=== PATIENT | female | born 1950 | race Caucasian/White ===

== ENCOUNTER 2018-04-26 16:13 | Emergency (ER) | payer MEDICARE, OTHER ==
[2018-04-26] MEDS ORDERED: Ondansetron 8 MG Tab.DIS PO ONE (17:12)
[2018-04-26] MEDS ORDERED: HYDROmorphone 2 MG/ML SDV IVPUSH ONE (17:12)
[2018-04-26] MEDS ORDERED: HYDROmorphone 2 MG/ML SDV IM ONE (17:38)
--- NOTE | 2018-04-29 11:16 | ER ---
DATE SEEN: 04/26/2018 TIME SEEN: The patient was seen at 1640 hours. HISTORY OF PRESENT ILLNESS: This pleasant 67-year-old woman with previous spinal surgery for spinal stenosis in 2001 and 2005 comes in with a new onset of acute back pain. This pain has chronically been radiating to her feet, but is worse in the last 3 days. 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 She cannot tolerate standing like this. The pain is increased when she bends, when she goes to the bathroom, strains, coughs. She has some mild dysesthesia, the left greater than right lateral thigh that radiates to her anterior tib-fib region and to her anterior medial gastroc region L4 distribution, and she denies recent fall or unusual injury. She describes the pain as 7/10 in intensity, constant, shooting, and sharp. She had an epidural in November of 2017 which helped her muscles, but did not change much, lasted for a month, and then the pain returned. PAST MEDICAL HISTORY: Significant for tubal ligation, hysterectomy, depression, arrhythmia, ablation (AFib). She has impaired vision, dyslipidemia, hypertension, diabetes, mildly overweight, and chronic low back pain. REVIEW OF SYSTEMS: Otherwise negative, but she notes a slight decrease in sensation in the perineum and down back her legs (S4, S3 distribution). ALLERGIES: Morphine, nitrofurantoin, nitroglycerin, penicillin, and Compazine. PHYSICAL EXAMINATION: VITAL SIGNS: Blood pressure 117/65, heart rate 66, respirations 15, oxygen saturation 98%. Temperature 36.4 degrees centigrade, 74.8 kilos. GENERAL: The patient appears to be in mild distress, has a smile, and is slightly overweight. Pleasant, well dressed and appropriate, and articulate. HEENT: PERRLA intact. Pharynx without abnormality. LUNGS: Clear without rales, rhonchi, or wheezes. ABDOMEN: Soft, no guarding, no abdominal discomfort. BACK: Spinous process nontender to the L2 level. Beyond this there is mild tenderness and L4/5 has the most tenderness. No sacroiliac joint pain with palpation. No cysts noted on the sacroiliac joints. Deep tendon reflexes absent in knee jerks and ankle jerks. Mild hypoesthesia of left medial gastroc and also left lateral thigh. Straight leg raise at 80 degrees causes pain. No joint line pain at the ankle and knee. ASSESSMENT: 1. Low back pain with acute exacerbation. 2. Documented surgical treatment for spinal stenosis with scar from T11 through L5-S1. PLAN: Treat her with a shot of Dilaudid 1 mg IM plus Zofran 8 mg orally. No narcotics to go home with. The patient has prescription for Robaxin 750 mg 60 tablets one q.i.d. Use Tylenol 1000 mg, ibuprofen 600 mg together for pain. Follow up with doctor in a week, earlier if worse. /[id number] DARIAN/RICHARDL
== END 2018-04-26 17:53 | disposition home or self-care (01) ==
LOC: FB.ED 16:13
DX: M54.5 Low back pain (principal); Z88.5 Allergy status to narcotic agent; Z88.0 Allergy status to penicillin; Z88.8 Allergy status to other drugs, medicaments and biological substances
CPT/HCPCS: 96372; 99283; A9270; J1170

== ENCOUNTER 2018-11-10 21:49 | Emergency (ER) | payer MEDICARE ==
[2018-11-10] MEDS ORDERED: Colchicine 0.6 MG Tab PO ONE (22:12)
[2018-11-10] MEDS ORDERED: Ketorolac 30 MG/ML SDV IM STA (23:09)
[2018-11-10] MEDS ORDERED: Potassium Chloride 20 MEQ Tab.ER PO ONE (23:10)
--- NOTE | 2018-11-10 23:13 | EDM.PDOC ---
ED HPI GENERAL MEDICAL PROBLEM - General Chief Complaint: Lower Extremity Injury/Pain Stated Complaint: L LEG PAIN Time Seen by Provider: 11/10/18 21:49 Source of Information: Reports: Patient History Limitations: Reports: No Limitations - History of Present Illness INITIAL COMMENTS - FREE TEXT/NARRATIVE: 68 y.o.w.f with a h/o CAD s/p CABG, came to the ed with pain at her left lower/ distal tibia with extension and flexion of her left ankle. No Traum. Pt took tylenol without improvement. No h/o DVT and the Pt is on blood thinner for her CAD. No N/V/D or any other acute medical issues. BP 146/58 RR 18 Pulse ox 96% on RA Pulse 86 Temp 36.7 Onset Date: 11/08/18 Onset Time: 09:00 Duration: Hour(s):, Day(s):, Getting Worse, Intermittent Location: Reports: Lower Extremity, Left Quality: Reports: Ache, Burning, Dull Severity: Moderate Improves with: Reports: Rest Worsens with: Reports: Movement Context: Reports: Other Associated Symptoms: Reports: No Other Symptoms Treatments CASH POSTER: Reports: Acetaminophen Left Leg Pain Score (Numeric/FACES): 9 - Related Data Allergies Allergy/AdvReac Type Severity Reaction Status Date / Time morphine Allergy Nausea and Verified 11/10/18 22:05 Vomiting nitrofurantoin Allergy Nausea and Verified 11/10/18 22:05 [From Macrobid] Vomiting nitroglycerin Allergy Nausea and Verified 11/10/18 22:05 Vomiting Penicillins Allergy Rash Verified 11/10/18 22:05 prochlorperazine Allergy Tachycardia Verified 11/10/18 22:05 [From Compazine] Home Meds: Home Meds Aspirin 81 mg PO DAILY 04/26/18 [History] ClonazePAM [KlonoPIN] 0.5 mg PO BEDTIME PRN 04/26/18 [History] Clopidogrel [Plavix] 75 mg PO DAILY 04/26/18 [History] FLUoxetine HCl [Prozac] 20 mg PO BID 04/26/18 [History] Metoprolol Tartrate [Lopressor] 50 mg PO BID 04/26/18 [History] Naproxen Sodium [Aleve] 220 mg PO BID PRN 04/26/18 [History] atorvaSTATin [Lipitor] 80 mg PO DAILY 04/26/18 [History] glipiZIDE [Glucotrol XL] 5 mg PO DAILY 04/26/18 [History] hydroCHLOROthiazide [Hydrochlorothiazide] 25 mg PO DAILY 04/26/18 [History] Past Medical History HEENT History: Reports: Impaired Vision Cardiovascular History: Reports: High Cholesterol, Hypertension, Stents Other Cardiovascular History: open heart surgery 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: Other Musculoskeletal History: spinal stenosis Psychiatric History: Reports: Depression Endocrine/Metabolic History: Reports: Diabetes, Type II - Past Surgical History Cardiovascular Surgical History: Reports: Cardiac Ablation, Coronary Artery Stent GI Surgical History: Reports: Appendectomy Female Surgical History: Reports: Hysterectomy, Tubal Ligation Other Musculoskeletal Surgeries/Procedures:: back surgery with pins Social & Family History - Family History Family Medical History: Noncontributory - Tobacco Use Smoking Status *Q: Never Smoker - Caffeine Use Caffeine Use: Reports: Coffee - Recreational Drug Use Recreational Drug Use: No Review of Systems - Review of Systems Review Of Systems: See Below Constitutional: Reports: No Symptoms Eyes: Reports: No Symptoms Ears: Reports: No Symptoms Nose: Reports: No Symptoms Mouth/Throat: Reports: No Symptoms Respiratory: Reports: No Symptoms Cardiovascular: Reports: No Symptoms GI/Abdominal: Reports: No Symptoms Genitourinary: Reports: No Symptoms Musculoskeletal: Reports: Leg Pain (left distal) Skin: Reports: No Symptoms Neurological: Reports: No Symptoms Psychiatric: Reports: No Symptoms ED EXAM, GENERAL - Physical Exam Exam: See Below Exam Limited By: No Limitations General Appearance: Alert, WD/WN, Mild Distress Eye Exam: Bilateral Eye: Normal Inspection Ears: Normal External Exam Ear Exam: Bilateral Ear: Auricle Normal Nose: Normal Inspection, Normal Mucosa, No Blood Throat/Mouth: Normal Inspection, Normal Lips, Normal Voice, No Airway Compromise Head: Atraumatic, Normocephalic Neck: Normal Inspection, Supple, Non-Tender, Full Range of Motion Respiratory/Chest: No Respiratory Distress, Lungs Clear, Normal Breath Sounds, No Accessory Muscle Use, Chest Non-Tender Cardiovascular: Normal Peripheral Pulses, Regular Rate, Rhythm, No Edema, No Gallop, No Murmur, No Rub Peripheral Pulses: 2+: Brachial (L) GI/Abdominal: Normal Bowel Sounds (Female) Exam: Deferred Rectal (Female) Exam: Deferred Back Exam: Normal Inspection Extremities: Pedal Edema (localized left distal tibia), Limited Range of Motion Neurological: Alert, Oriented, CN II-XII Intact, Normal Cognition, Abnormal Gait Psychiatric: Normal Affect, Normal Mood Skin Exam: Warm, Dry, Intact, Normal Color, No Rash Lymphatic: No Adenopathy Course - Vital Signs Text/Narrative:: 68 y.o.w.f with a h/o CAD s/p CABG, came to the ed with pain at her left lower/ distal tibia with extension and flexion of her left ankle. No Traum. Pt took tylenol without improvement. No h/o DVT and the Pt is on blood thinner for her CAD. No N/V/D or any other acute medical issues. BP 146/58 RR 18 Pulse ox 96% on RA Pulse 86 Temp 36.7 PE: WNWD very pleasant 68 y.o.w.f with left distal low extr pain Imaging: X Ray left T/F: NAD Labs: CBC/BMP neg except K was 3.1 Glc was 143 Impression: Tendinitis left lower extremity, distal, anterior, Hypokalemia DDx: Gout Tx: Toradol, Colchizin, Potassium, ICE Reexam: 80% improvement. Plan: D/C with instructions Last Recorded V/S: Last Vital Signs Temp 36.1 C 11/11/18 00:04 Pulse 69 11/11/18 00:04 Resp 17 11/11/18 00:04 BP 135/62 11/11/18 00:04 Pulse Ox 95 11/11/18 00:04 - Orders/Labs/Meds Orders: Active Orders 24 hr Category Date Time Status Tibia Fibula Lt [CR] Stat Exams 11/10/18 23:30 Taken Labs: Laboratory Tests 11/10/18 11/10/18 11/10/18 Range/Units 22:20 22:20 22:20 WBC 8.5 (4.5-12.0) X10-3/uL RBC 4.45 (3.23-5.20) x10(6)uL Hgb 13.5 (11.5-15.5) g/dL Hct 40.2 (30.0-51.3) % MCV 90.3 (80-96) fL MCH 30.4 (27.7-33.6) pg MCHC 33.6 (32.2-35.4) g/dL RDW 12.9 (11.5-15.5) % Plt Count 309 (125-369) X10(3)uL MPV 8.8 (7.4-10.4) fL Neut % (Auto) 50.8 (46-82) % Lymph % (Auto) 38.3 H (13-37) % [place] % (Auto) 7.2 (4-12) % Eos % (Auto) 3 (1.0-5.0) % Baso % (Auto) 0 (0-2) % Neut # (Auto) 4.3 (1.6-8.3) # Lymph # (Auto) 3.3 (0.6-5.0) # [place] # (Auto) 0.6 (0.0-1.3) # Eos # (Auto) 0.3 (0.0-0.8) # Baso # (Auto) 0.0 (0.0-0.2) # Sodium 138 (135-145) mmol/L Potassium 3.1 L (3.5-5.3) mmol/L Chloride 102 (100-110) mmol/L Carbon Dioxide 27 (21-32) mmol/L BUN 18 (7-18) mg/dL Creatinine 0.7 (0.55-1.02) mg/dL Est Cr Clr Drug Dosing 64.51 mL/min Estimated GFR (MDRD) > 60 (>60) BUN/Creatinine Ratio 25.7 H (9-20) Glucose 141 H (80-116) mg/dL Uric Acid 4.0 (3.5-7.2) mg/dL Calcium 9.4 (8.6-10.2) mg/dL Magnesium (1.8-2.5) mg/dL 11/10/18 Range/Units 22:20 WBC (4.5-12.0) X10-3/uL RBC (3.23-5.20) x10(6)uL Hgb (11.5-15.5) g/dL Hct (30.0-51.3) % MCV (80-96) fL MCH (27.7-33.6) pg MCHC (32.2-35.4) g/dL RDW (11.5-15.5) % Plt Count (125-369) X10(3)uL MPV (7.4-10.4) fL Neut % (Auto) (46-82) % Lymph % (Auto) (13-37) % [place] % (Auto) (4-12) % Eos % (Auto) (1.0-5.0) % Baso % (Auto) (0-2) % Neut # (Auto) (1.6-8.3) # Lymph # (Auto) (0.6-5.0) # [place] # (Auto) (0.0-1.3) # Eos # (Auto) (0.0-0.8) # Baso # (Auto) (0.0-0.2) # Sodium (135-145) mmol/L Potassium (3.5-5.3) mmol/L Chloride (100-110) mmol/L Carbon Dioxide (21-32) mmol/L BUN (7-18) mg/dL Creatinine (0.55-1.02) mg/dL Est Cr Clr Drug Dosing mL/min Estimated GFR (MDRD) (>60) BUN/Creatinine Ratio (9-20) Glucose (80-116) mg/dL Uric Acid (3.5-7.2) mg/dL Calcium (8.6-10.2) mg/dL Magnesium 1.8 (1.8-2.5) mg/dL Meds: Medications Discontinued Medications Generic Name Dose Route Start Last Admin Trade Name Grzegorzq PRN Reason Stop Dose Admin Colchicine 0.6 mg 11/10/18 22:12 11/10/18 22:30 Colcrys PO 11/10/18 22:13 0.6 mg ONETIME ONE Administration Ketorolac Tromethamine 30 mg 11/10/18 23:09 11/10/18 23:14 Toradol IM 11/10/18 23:10 30 mg ONETIME STA Administration Potassium Chloride 40 meq 11/10/18 23:10 11/10/18 23:14 Klor-Con M20 PO 11/10/18 23:11 40 meq ONETIME ONE Administration Departure - Departure Time of Disposition: 23:57 Disposition: Home, Self-Care 01 Condition: Good Clinical Impression: Tibialis tendinitis of left lower extremity - Discharge Information Instructions: Tendinitis, [id number] Referrals: Rodney Sheffield MD [Primary Care Provider] - Forms: ED Department Discharge Additional Instructions: Ice, rest elevation, Motrin 600 mg every 6-8 hours as needed (with food) F/U, come back if your symptoms get worse acutely - My Orders Last 24 Hours: My Active Orders 11/10/18 23:30 Tibia Fibula Lt [CR] Stat - Assessment/Plan Last 24 Hours: My Active Orders 11/10/18 23:30 Tibia Fibula Lt [CR] Stat
== END 2018-11-11 00:04 | disposition home or self-care (01) ==
LOC: FB.ED 21:49
DX: M76.822 Posterior tibial tendinitis, left leg (principal); E87.6 Hypokalemia; E11.9 Type 2 diabetes mellitus without complications; I10 Essential (primary) hypertension; F32.9 Major depressive disorder, single episode, unspecified; E78.00 Pure hypercholesterolemia, unspecified; Z79.84 Long term (current) use of oral hypoglycemic drugs; Z79.899 Other long term (current) drug therapy; Z88.5 Allergy status to narcotic agent; Z88.0 Allergy status to penicillin; Z88.8 Allergy status to other drugs, medicaments and biological substances
CPT/HCPCS: 36415; 73590-LT; 80048; 83735; 84550; 85025; 96372; 99283; A9270-GY; J1885

== ENCOUNTER 2019-04-14 06:56 | Day surgery (SDC) | payer MEDICARE ==
[2019-04-14] MEDS ORDERED: Propofol 200 MG/20 ML SDV IV ONE (06:57)
[2019-04-14] MEDS ORDERED: Lidocaine 2% 100 MG/5 ML Syringe IVPUSH ONE (06:57)
[2019-04-14] MEDS ORDERED: Sodium Chloride 0.9% 10 ML Syringe FLUSH PRN (07:15)
[2019-04-14] MEDS ORDERED: Lactated Ringers 1,000 ML IV SCH (07:15)
--- NOTE | 2019-04-14 07:41 | PCM.SN ---
- Free Text/Narrative Note: New H+P dictated
--- NOTE | 2019-04-14 08:17 | PREOP ---
ADMISSION DATE: 04/14/2019 CHIEF COMPLAINT: Colon cancer screening. HISTORY OF PRESENT ILLNESS: A 68-year-old white female, referred for screening C scope without complaints. No issues. Last scope was 10 years ago. SOCIAL HISTORY: Does not smoke. Has 1 to 2 glasses of wine per week. Denies any illicit drug use. PAST MEDICAL HISTORY: Significant for the following; anxiety, congestive heart failure, coronary artery disease, degenerative joint disease, depression, type 2 diabetes, hypertension, kidney cysts, as well as some history of abnormal thyroid studies. PAST SURGICAL HISTORY: Significant for cardiac ablation, appendectomy, coronary artery bypass graft, spine surgery, tonsillectomy, adenoidectomy, total abdominal hysterectomy, cardiac catheterization, transluminal balloon angioplasty. FAMILY HISTORY: Significant for hypertension, stroke, depression, arthritis, cataracts, diabetes. CURRENT MEDICATIONS: 1. Glucophage XR 500 mg two times a day. 2. Metoprolol 50 mg SR one daily. 3. Hydrochlorothiazide 25 mg one daily. 4. Glipizide 5 mg extended release one daily. 5. Fluoxetine 20 mg two times a day. 6. Bentyl 20 mg four times a day as needed. 7. Plavix 75 mg one time per day. 8. Lipitor 80 mg one time daily. 9. Tylenol No. 3 one tablet by mouth two times a day as needed for severe pain. 10.Baby aspirin 81 mg one time per day. ALLERGIES: Include penicillin, Compazine, Macrobid, morphine, nitrofurantoin, and nitroglycerin. REVIEW OF SYSTEMS: GENERAL: The patient denies any generalized symptoms. HEENT: Denies any issues with her head, ear, nose, and throat except for some hair loss. RESPIRATORY: Negative. CARDIOVASCULAR: She does have some occasional chest pain, but recent cardiac evaluation has been negative. GASTROINTESTINAL: Negative. GENITOURINARY: Negative. MUSCULOSKELETAL: Positive for back pain. ALLERGIES: She denies any environmental allergies or food allergies. NEUROLOGIC: Negative as well. SKIN: She does bruise easily secondary to her medication. PHYSICAL EXAMINATION: GENERAL: This is a well-developed, well-nourished female, appearing in no acute distress. HEENT: Grossly within normal limits. LUNGS: Clear to auscultation. HEART: Had a regular rate and rhythm. ABDOMEN: Soft, nontender. ASSESSMENT: Need for screening C scope. PLAN: C-scope. Procedure and risks explained to the patient to include bleeding, infection, perforation. The patient expresses understanding and she asked us to proceed. /[id number] /RICHARDL
--- NOTE | 2019-04-14 09:02 | PCM.OPNOTE ---
- General Post-Op/Procedure Note Date of Surgery/Procedure: 04/14/19 Operative Procedure(s): c scope with bx Findings: ascending colon polyp Pre Op Diagnosis: screening Post-Op Diagnosis: ascending colon polyp Anesthesia Technique: MAC (s) Primary Surgeon: Aron De Leon Anesthesia Provider: Francesca Ortega Pathology: ascending polyp Complications: None Condition: Good Free Text/Narrative:: see diction
--- NOTE | 2019-04-14 11:45 | OR ---
DATE OF OPERATION: 04/14/2019 SURGEON: Aron De Leon MD PROCEDURES PERFORMED: Colonoscopy, cold forceps biopsy. PREOPERATIVE DIAGNOSIS: Screening for colon cancer. POSTOPERATIVE DIAGNOSIS: Colon polyp, ascending colon. INDICATIONS FOR PROCEDURE: This is a 68-year-old white female who presents for followup colonoscopy. She is without complaints. DESCRIPTION OF OPERATION: After an excellent IV sedation was administered, digital rectal exam was performed. No marked abnormality was noted. Flexible colonoscope was inserted and advanced to the cecum. The prep for the most part was adequate. There were some areas of particulate matter that we were able for the most part to irrigate around, it did clog once the colonoscope. We had to change out and replace. When we got to the descending colon, however, an adequate evaluation of the mucosa was obtained. Following findings were noted. Ascending colon, just above cecum, small polypoid lesion. Photo and biopsies taken. Transverse colon, unremarkable. Descending colon, unremarkable. Sigmoid and rectum, unremarkable. Colon was deflated. Scope was removed. The patient tolerated the procedure well. Results by letter. /[id number] /MODL
== END 2019-04-14 10:12 | disposition home or self-care (01) ==
LOC: FB.SDS 06:56
PROVIDERS: ATTEND Surgery
DX: Z12.11 Encounter for screening for malignant neoplasm of colon (principal); D12.2 Benign neoplasm of ascending colon; I25.10 Atherosclerotic heart disease of native coronary artery without angina pectoris; I11.0 Hypertensive heart disease with heart failure; I50.9 Heart failure, unspecified; E11.9 Type 2 diabetes mellitus without complications; E78.00 Pure hypercholesterolemia, unspecified; K21.9 Gastro-esophageal reflux disease without esophagitis; F41.9 Anxiety disorder, unspecified; F32.9 Major depressive disorder, single episode, unspecified; G47.00 Insomnia, unspecified; Z88.0 Allergy status to penicillin; Z88.5 Allergy status to narcotic agent; Z88.1 Allergy status to other antibiotic agents; Z88.8 Allergy status to other drugs, medicaments and biological substances; Z95.5 Presence of coronary angioplasty implant and graft; Z79.02 Long term (current) use of antithrombotics/antiplatelets; Z79.84 Long term (current) use of oral hypoglycemic drugs; Z79.82 Long term (current) use of aspirin; Z79.899 Other long term (current) drug therapy
CPT/HCPCS: 00812; 45380; 82962; 88305; J2001; J2704; J7120

== ENCOUNTER 2022-12-03 01:20 | Emergency (ER) | payer MEDICARE ==
[2022-12-03] MEDS: Sodium Chloride 0.9% 10 ML Syringe FLUSH PRN (01:55)
[2022-12-03] MEDS: Ondansetron 4 MG/2 ML SDV IVPUSH ONE (01:55)
[2022-12-03 02:06] LABS: ESTIMATED GFR 79 mL/min (>60)
[2022-12-03] MEDS: Aspirin 81 MG Tab.Chew PO ONE (02:06)
[2022-12-03] MEDS: fentaNYL 100 MCG/2 ML SDV IVPUSH PRN (02:20)
[2022-12-03] MEDS: Sodium Chloride 0.9% 10 ML Syringe FLUSH ONE (03:11)
[2022-12-03] MEDS: Iopamidol 755 Mg/ML 100 ML Bottle IV ONE (03:11)
[2022-12-03] MEDS: Pantoprazole 40 MG Tab.CR PO SCH (06:43)
[2022-12-04] MEDS ORDERED: Pantoprazole 40 MG Tab.CR PO SCH (06:00)
== END 2022-12-03 06:50 | disposition home or self-care (01) ==
LOC: FB.ED 01:20
DX: R07.89 Other chest pain (principal); I10 Essential (primary) hypertension; E11.9 Type 2 diabetes mellitus without complications; E78.00 Pure hypercholesterolemia, unspecified; I25.10 Atherosclerotic heart disease of native coronary artery without angina pectoris; I25.2 Old myocardial infarction; K21.9 Gastro-esophageal reflux disease without esophagitis; Z88.0 Allergy status to penicillin; Z88.5 Allergy status to narcotic agent; Z88.8 Allergy status to other drugs, medicaments and biological substances; Z88.1 Allergy status to other antibiotic agents; Z79.899 Other long term (current) drug therapy; Z79.82 Long term (current) use of aspirin; Z79.02 Long term (current) use of antithrombotics/antiplatelets; Z95.1 Presence of aortocoronary bypass graft
CPT/HCPCS: 36415; 71045; 71260; 74177; 80053; 83690; 83880; 84484; 85025; 85379; 93005; 96374; 96375; 99285-25; A9270-GY; J2405; J3010; J3490; Q9967

== ENCOUNTER 2023-09-24 22:00 | Emergency (ER) | payer MEDICARE ==
[2023-09-24] MEDS ORDERED: Sodium Chloride 0.9% 10 ML Syringe FLUSH PRN (22:21)
[2023-09-24 22:29] LABS: BASOPHILS PERCENT AUTO 0.4 % (0.2-1.5); EOSINOPHILS ABSOLUTE AUTO 0.1 x10-3/uL (0.0-0.8); EOSINOPHILS PERCENT AUTO 1.2 % (0.6-8.1); HEMATOCRIT 39.3 % (34.2-48.2); HEMOGLOBIN 13.4 g/dL (11.4-15.5); LYMPHOCYTES ABSOLUTE AUTO 1.7 x10-3/uL (1.0-4.4); LYMPHOCYTES PERCENT AUTO 20.3 % (18.4-52.1); MEAN CORPUSCULAR HEMOGLOBIN 30.6 pg (23.9-33.9); MEAN CORPUSCULAR HGB CONC 34.1 g/dL (31.9-34.8); MEAN CORPUSCULAR VOLUME 89.7 fL (76.7-100.5); MEAN PLATELET VOLUME 7.8 fL (7.1-12.4); MONOCYTES ABSOLUTE AUTO 0.8 x10-3/uL (0.3-1.0); MONOCYTES PERCENT AUTO 9.1 % (4.4-15.7); NEUTROPHILS ABSOLUTE AUTO 5.8 x10-3/uL (1.5-6.3); PLATELET COUNT,PLT 308 x10(3)uL (151-488); RED BLOOD CELL COUNT 4.38 x10(6)uL (3.60-5.20); RED CELL DISTRIBUTION WIDTH 13.8 % (12.3-16.5); WHITE BLOOD CELL COUNT,WBC 8.5 x10-3/uL (3.0-10.3)
[2023-09-24 22:37] LABS: BLOOD UREA NITROGEN,BUN 20 mg/dL (7-18); CALCIUM 9.3 mg/dL (8.6-10.2); CARBON DIOXIDE,CO2 26 mmol/L (21-32); CHLORIDE,CL 99 mmol/L (100-110); CREATININE 0.8 mg/dL (0.55-1.02); EST CRCL DRUG DOSING (CG) 50.27 mL/min; ESTIMATED GFR 78 mL/min (>60); GLUCOSE RANDOM 149 mg/dL (80-116); POTASSIUM,K 3.2 mmol/L (3.5-5.3); SODIUM,NA 134 mmol/L (135-145)
[2023-09-24 22:43] LABS: A/G RATIO 0.9; ALANINE AMINOTRANSFERASE,ALT 53 U/L (12-36); ALBUMIN 3.5 g/dL (3.2-4.6); ALKALINE PHOSPHATASE 133 IU/L (56-112); ASPARTATE AMNIOTRANSFERASE,AST 38 IU/L (5-25); BILIRUBIN TOTAL 0.7 mg/dL (0.1-1.3); PROTEIN TOTAL,TP 7.4 g/dL (6.0-8.0)
[2023-09-24 22:45] LABS: TROPONIN I 8.9 pg/mL (4.0-60.3)
[2023-09-24 22:49] LABS: C-REACTIVE PROTEIN < 0.50 mg/dL (<0.50)
== END 2023-09-24 23:45 | disposition home or self-care (01) ==
LOC: FB.ED 22:00
DX: R07.89 Other chest pain (principal); K21.9 Gastro-esophageal reflux disease without esophagitis; I11.0 Hypertensive heart disease with heart failure; I10 Essential (primary) hypertension; I25.10 Atherosclerotic heart disease of native coronary artery without angina pectoris; I25.2 Old myocardial infarction; E78.00 Pure hypercholesterolemia, unspecified; Z88.0 Allergy status to penicillin; Z88.5 Allergy status to narcotic agent; Z88.8 Allergy status to other drugs, medicaments and biological substances
CPT/HCPCS: 36415; 71045; 80053; 83880; 84484; 85025; 85379; 86140; 93005; 99285

== ENCOUNTER 2025-03-03 19:00 | Emergency (ER) | payer MEDICARE ==
[2025-03-03 19:43] LABS: BILIRUBIN,URINE NEGATIVE (NEGATIVE); GLUCOSE,URINE >1000 mg/dL (NORMAL); KETONES,URINE NEGATIVE (NEGATIVE); LEUKOCYTE ESTERASE,URINE SMALL (NEGATIVE); NITRITE,URINE POSITIVE (NEGATIVE); OCCULT BLOOD,URINE MODERATE (NEGATIVE); PROTEIN,URINE NEGATIVE (NEGATIVE); UROBILINOGEN,URINE NORMAL (NEGATIVE)
[2025-03-03 19:45] LABS: APPEARANCE,URINE SLIGHTLY CLOUDY (CLEAR); BACTERIA,URINE MODERATE (NS); COLOR,URINE YELLOW (YELLOW); SQUAMOUS EPITHELIAL CELLS,UR FEW (NS,R,O)
[2025-03-03 19:59] LABS: BASOPHILS PERCENT AUTO 0.3 % (0.2-1.5); EOSINOPHILS ABSOLUTE AUTO 0.3 x10-3/uL (0.0-0.8); EOSINOPHILS PERCENT AUTO 2.9 % (0.6-8.1); HEMATOCRIT 43.3 % (34.2-48.2); HEMOGLOBIN 14.5 g/dL (11.4-15.5); LYMPHOCYTES ABSOLUTE AUTO 3.2 x10-3/uL (1.0-4.4); LYMPHOCYTES PERCENT AUTO 34.8 % (18.4-52.1); MEAN CORPUSCULAR HEMOGLOBIN 29.9 pg (23.9-33.9); MEAN CORPUSCULAR HGB CONC 33.5 g/dL (31.9-34.8); MEAN CORPUSCULAR VOLUME 89.2 fL (76.7-100.5); MEAN PLATELET VOLUME 8.2 fL (7.1-12.4); MONOCYTES ABSOLUTE AUTO 0.7 x10-3/uL (0.3-1.0); MONOCYTES PERCENT AUTO 7.8 % (4.4-15.7); NEUTROPHILS PERCENT AUTO 54.2 % (30.8-76.2); PLATELET COUNT,PLT 293 x10(3)uL (151-488); RED BLOOD CELL COUNT 4.85 x10(6)uL (3.60-5.20); RED CELL DISTRIBUTION WIDTH 14.9 % (12.3-16.5); WHITE BLOOD CELL COUNT,WBC 9.3 x10-3/uL (3.0-10.3)
[2025-03-03 20:02] LABS: BLOOD UREA NITROGEN,BUN 14 mg/dL (7-18); BUN/CREATININE RATIO 17.5 (9-20); CALCIUM 8.7 mg/dL (8.6-10.2); CARBON DIOXIDE,CO2 26 mmol/L (21-32); CHLORIDE,CL 104 mmol/L (100-110); CREATININE 0.8 mg/dL (0.55-1.02); EST CRCL DRUG DOSING (CG) 49.53 mL/min; ESTIMATED GFR 78 mL/min (>60); GLUCOSE RANDOM 131 mg/dL (80-116); SODIUM,NA 138 mmol/L (135-145)
[2025-03-03] MEDS: Acetaminophen 500 MG Tab PO ONE (21:24)
[2025-03-03] MEDS: Cephalexin 250 MG Cap PO ONE (21:41)
== END 2025-03-03 21:37 | disposition home or self-care (01) ==
LOC: FB.ED 19:00
DX: N39.0 Urinary tract infection, site not specified (principal); E78.00 Pure hypercholesterolemia, unspecified; I10 Essential (primary) hypertension; K21.9 Gastro-esophageal reflux disease without esophagitis; M19.90 Unspecified osteoarthritis, unspecified site; E11.9 Type 2 diabetes mellitus without complications; Z88.5 Allergy status to narcotic agent; Z88.8 Allergy status to other drugs, medicaments and biological substances; Z88.0 Allergy status to penicillin; Z79.82 Long term (current) use of aspirin; Z79.899 Other long term (current) drug therapy; Z86.16 Personal history of COVID-19; Z90.49 Acquired absence of other specified parts of digestive tract; Z90.710 Acquired absence of both cervix and uterus
CPT/HCPCS: 36415; 74176; 80048; 81001; 85025; 86140; 87086; 87088; 99284; A9270; 87186